=== PATIENT | male | born 1980 | race Caucasian/White ===

== ENCOUNTER 2018-05-05 19:17 | Inpatient (IN) | payer SELFPAY ==
[2018-05-05] MEDS ORDERED: Ketorolac Tromethamine 30 MG/ML VIAL ONE (20:55)
[2018-05-05 20:57] LABS: #Basophils 0.1 thou/uL (0.0-0.2); #Eosinphils 0.2 thou/uL (0.0-0.7); #Lymphocytes 1.4 thou/uL (1.20-3.40); #Monocytes 0.8 thou/uL (0.11-0.59); #Neutrophils 2.8 thou/uL (1.40-6.50); %Basophils 1.3 % (0.0-1.0); %Eosinophils 3.2 % (0.0-10.0); %Lymphocytes 26.7 % (21.0-51.0); %Monocytes 14.8 % (0.0-10.0); Hemoglobin 14.9 g/dL (14.0-18.0); Mean Corpuscular HGB CONC 34.3 g/dL (32.0-36.0); Mean Corpuscular Hemoglobin 31.5 pg (27.0-31.0); Mean Corpuscular Volume 91.8 fL (78.0-98.0); Mean Platelet Volume 7.7 fL (7.4-10.4); Platelet Count 180 thou/uL (130-400); RBC Distribution Width 11.7 % (11.5-14.5); Red Blood Cell (RBC) Count 4.72 mill/uL (4.70-6.10); White Blood Cell (WBC) Count 5.1 thou/uL (4.8-10.8)
[2018-05-05 21:24] LABS: ALT (SGPT) 19 U/L (8-55); AST (SGOT) 16 U/L (5-34); Albumin 3.9 g/dL (3.5-5.0); Alkaline Phosphatase 54 U/L (40-150); Anion Gap 12 mmol/L (10-20); BUN (Urea Nitrogen) 12 mg/dL (8.9-20.6); Bilirubin, Total 0.5 mg/dL (0.2-1.2); Calc. Creatinine Clearance 0 mL/min (70-130); Carbon Dioxide 26 mmol/L (22-29); Chloride 103 mmol/L (98-107); Estimated GFR-MDRD Greater than 90; Globulin 3.3 g/dL (2.4-3.5); Glucose 90 mg/dL (70-105); Potassium 3.6 mmol/L (3.5-5.1); Protein, Total 7.2 g/dL (6.0-8.3); Sodium 137 mmol/L (136-145)
[2018-05-05] MEDS ORDERED: Piperacillin/Tazobactam 4.5 GM VIAL ONE (22:25)
--- NOTE | 2018-05-05 22:36 | RAD ---
LEFT LEG TWO VIEWS: 05/05/18 HISTORY: Spider bite. FINDINGS: No fracture. No malalignment. Mild soft tissue swelling. No radiopaque foreign object. IMPRESSION: Mild soft tissue swelling. No other acute abnormality. POS: CHRISTELH
[2018-05-05] MEDS ORDERED: HYDROcodone/Acetaminophen 5/325 mg Tablet ONE (22:48)
[2018-05-05 23:33] VITALS: BMI 37.3
[2018-05-06] MEDS ORDERED: Acetaminophen 325 MG TAB PO PRN ×2 (00:09→00:56)
[2018-05-06] MEDS ORDERED: Ketorolac Tromethamine 30 MG/ML VIAL IVP PRN (00:55)
[2018-05-06] MEDS ORDERED: Ondansetron ODT 4 MG TAB PO PRN (00:56)
[2018-05-06] MEDS ORDERED: Ondansetron HCl/PF 4 MG/2 ML Vial IVP PRN (00:56)
[2018-05-06] MEDS ORDERED: Mag-Al 1200 mg/1200 mg/30 ML UDCUP PO PRN (00:56)
[2018-05-06] MEDS ORDERED: Calcium Carbonate 500 MG ChewTAB PO PRN (00:56)
[2018-05-06] MEDS ORDERED: Senokot 8.6 MG TAB PO PRN (00:56)
[2018-05-06] MEDS ORDERED: Vancomycin HCl 1 GM in Premix Bag 1 BAG IVPB SCH (01:00)
--- NOTE | 2018-05-06 01:07 | HP ---
The patient was seen and examined on 05/05/2018. CHIEF COMPLAINT: Left leg swelling. HISTORY OF PRESENT ILLNESS: Patient is a 37-year-old male who presented to the emergency room with l eft leg swelling that has been progressively worsening over the last 2-3 days. Four days ago, the patient noticed a spider bite in his left leg. He thinks that he saw the spider renetta douglas was brownish in color and small. He is unable to provide further details. Next day, he noticed some swelling along with erythema and warmth around the area that has been progressively worsening. His pain was moderate to severe in intensity. He also had fever, chills, and nausea. His last teta nus shot was within the last 5 years. PAST MEDICAL HISTORY: Reviewed with the patient and none. PAST SURGICAL HISTORY: Umbilical hernia repair. ALLERGIES: No known drug allergies. CURRENT HOME MEDICATIONS: Reviewed with the patient and none. SOCIAL HISTORY: Patient currently lives at home. He smokes on a daily basis. He also smokes cannab is. Denies any other drug use. He drinks socially. FAMILY HISTORY: Positive for heart disease and diabetes. REVIEW OF SYSTEMS: The following complete review of systems was negative, unless otherwise mentioned in the HPI or below: Constitutional: Weight loss or gain, ability to conduct usual activities. Skin: Rash, itching. Eyes: Double vision, pain. ENT/Mouth: Nose bleeding, neck stiffness, pain, tenderness. Cardiovascular: Palpitations, dyspnea on exertion, orthopnea. Respiratory: Shortness of breath, wheezing, cough, hemoptysis, fever or night sweats. Gastrointestinal: Poor appetite, abdominal pain, heartburn, nausea, vomiting, constipation, or diarr hea. Genitourinary: Urgency, frequency, dysuria, nocturia. Musculoskeletal: Pain, swelling. Neurologic/Psychiatric: Anxiety, depression. Allergy/Immunologic: Skin rash, bleeding tendency. PHYSICAL EXAMINATION: VITAL SIGNS: Temperature 98.9, respirations 20, pulse rate of 97, blood pressure of 129/75 with O2 s aturation of 99% on room air. GENERAL: A 37-year-old male in mild distress due to left lower extremity pain. HEENT: Head is atraumatic, normocephalic. Sclerae are anicteric. Moist mucous membrane, no oral le jose enrique. NECK: Supple, no JVD appreciated. No carotid bruit. LUNGS: Clear to auscultation bilaterally. HEART: S1, S2 present. Regular rate and rhythm. No murmurs, rubs, or gallops. ABDOMEN: Soft, nontender, bowel sounds present. EXTREMITIES: No edema in the right lower extremity. There is significant warmth along with tenderne ss and erythema over the posterior leg. Range of motion of the ankle and knees were normal. There w as 1+ swelling in the left leg. SKIN: As discussed above. LYMPH NODES: No palpable lymph nodes in the neck. PERIPHERAL VASCULAR: Radial pulses palpable bilaterally. MUSCULOSKELETAL: No joint swelling or tenderness. LABORATORY DATA AND IMAGING DATA: 1. CBC showed WBC 5.1 with hemoglobin 14.9, hematocrit 43.3 and platelet 180. 2. Chemistries showed sodium 137, potassium 3.6, chloride 103, bicarbonate 26, BUN 12, creatinine 0. 8. 3. Lactic acid 0.7. 4. X-ray of the leg by my review was negative for foreign body or gas. There was mild soft tissue s welling. IMPRESSION AND PLAN: 1. Left leg cellulitis. Please note that patient was started on doxycycline at the [facility] yesterday without much benefit. He has failed outpatient therapy. 2. Tobacco dependence. 3. Cannabis abuse. 4. Obesity with body mass index 37.3. PLAN: The patient will be monitored on the medical floor. Empiric antibiotics will be initiated. W e will monitor vancomycin level. We will consult Infectious Disease in a.m. due to significant eryth live and swelling. Gentle intravenous hydration. Patient was counseled to quit smoking. Plan of care was discussed with the patient in detail. He stated understanding.
[2018-05-06] MEDS ORDERED: VANCOMYCIN IVPB PRN (01:18)
[2018-05-06] MEDS: Sodium Chloride 0.9% 1,000 ML IV SCH ×2 (02:07→20:00)
[2018-05-06] MEDS: Vancomycin HCl 1.75 GM in Sodium Chloride 0.9% 500 ML IVPB SCH ×2 (02:07→10:16)
[2018-05-06 05:05] LABS: BUN (Urea Nitrogen) 10 mg/dL (8.9-20.6); Calc. Creatinine Clearance 194 mL/min (70-130); Calcium 8.6 mg/dL (7.8-10.44); Carbon Dioxide 25 mmol/L (22-29); Chloride 105 mmol/L (98-107); Estimated GFR-MDRD Greater than 90; Glucose 88 mg/dL (70-105); Potassium 3.6 mmol/L (3.5-5.1); Sodium 137 mmol/L (136-145)
[2018-05-06 05:14] LABS: Band 3 % (5-11); Eosinophils 3 % (0-10); Lymphocytes 34 % (21-51); MDiff Complete? YES; Mean Corpuscular HGB CONC 33.6 g/dL (32.0-36.0); Mean Corpuscular Hemoglobin 30.9 pg (27.0-31.0); Mean Corpuscular Volume 92.1 fL (78.0-98.0); Mean Platelet Volume 7.5 fL (7.4-10.4); Monocytes 15 % (0-10); Neutrophil 45 % (42-75); Platelet Count 169 thou/uL (130-400); RBC Distribution Width 11.8 % (11.5-14.5); Red Blood Cell (RBC) Count 4.53 mill/uL (4.70-6.10); White Blood Cell (WBC) Count 5.4 thou/uL (4.8-10.8)
[2018-05-06] MEDS: Piperacillin/Tazobactam 3.375 GM in Sodium Chloride 0.9% 100 ML IVPB SCH ×2 (05:41→11:57)
[2018-05-06] MEDS ORDERED: traMADol HCl 50 MG TAB PO PRN (07:46)
[2018-05-06] MEDS ORDERED: Sodium Chloride 0.65% Nasal 44 ML BOT EA NARE PRN (07:46)
[2018-05-06] MEDS ORDERED: Milk Of Magnesia 30 ML UDCUP PO PRN (07:46)
[2018-05-06] MEDS ORDERED: Artificial Tears 18 DROP/0.9 ML EA EYE PRN (07:46)
[2018-05-06] MEDS ORDERED: Loratadine 10 MG TAB PO PRN (07:46)
[2018-05-06] MEDS ORDERED: Eucerin (Mineral Oil/Petrolatum,White) 30 gm Jar TOP PRN (07:46)
[2018-05-06] MEDS ORDERED: Diabetic Tussin 200 MG/10 ML UDCUP PO PRN (07:46)
[2018-05-06] MEDS ORDERED: Famotidine 20 MG TAB PO PRN (07:46)
[2018-05-06] MEDS ORDERED: Chloraseptic Spray 180 ml Bottle PO PRN (07:46)
[2018-05-06] MEDS ORDERED: hydrALAZINE 20 MG/ML VIAL SLOW IVP PRN (07:46)
[2018-05-06] MEDS ORDERED: Zolpidem Tartrate 5 MG TAB PO PRN (07:46)
[2018-05-06] MEDS ORDERED: Loperamide HCl 2 MG CAP PO PRN (07:46)
[2018-05-06] MEDS: HYDROcodone/Acetaminophen 5/325 mg Tablet PO PRN ×2 (08:40→22:29)
[2018-05-06] MEDS: Docusate 100 MG CAP PO SCH ×2 (08:43→19:58)
--- NOTE | 2018-05-06 12:25 | PDOC.PN ---
- Subjective Encounter Start Date: 05/06/18 Encounter Start Time: 09:00 -: old records requested/rev Patient seen and examined. No new complaints. No overnight events pt reports that his pain is not controlled with current meds - Objective Resuscitation Status: Resuscitation Status FULL:Full Resuscitation MAR Reviewed: Yes Vital Signs & Weight: Vital Signs (12 hours) Temp Pulse Resp BP Pulse Ox 05/06/18 08:00 97.5 F L 67 20 99 05/06/18 07:54 97.5 F L 67 20 118/78 99 05/06/18 04:00 97.5 F L 70 16 107/71 96 Weight Weight 267 lb 6.731 oz Result Diagrams: 05/06/18 04:29 05/06/18 04:29 Phys Exam - Physical Examination Constitutional: NAD HEENT: PERRLA, moist MMs, sclera anicteric Neck: no JVD, supple Respiratory: no wheezing, no rales, no rhonchi Cardiovascular: RRR, no significant murmur, no rub Gastrointestinal: soft, non-tender, no distention, positive bowel sounds Musculoskeletal: no edema, pulses present left leg cellulitis Neurological: non-focal, normal sensation, moves all 4 limbs Lymphatic: no nodes Psychiatric: normal affect, A&O x 3 Skin: no rash, normal turgor Dx/Plan (1) Cellulitis of left leg Code(s): L03.116 - CELLULITIS OF LEFT LOWER LIMB Status: Acute (2) Cannabis abuse Code(s): F12.10 - CANNABIS ABUSE, UNCOMPLICATED Status: Chronic (3) Obesity (BMI 30-39.9) Code(s): E66.9 - OBESITY, UNSPECIFIED Status: Chronic (4) Tobacco dependence Code(s): F17.200 - NICOTINE DEPENDENCE, UNSPECIFIED, UNCOMPLICATED Status: Chronic - Plan cont current plan of care, continue antibiotics * continue vancomycin and zosyn * will add morphin for pain control * medication reviewed as below * symptomatic treatment * follow culture * ID consulted. Review of Systems - Review of Systems Eyes: negative: Pain, Vision Change, Conjunctivae Inflammation, Eyelid Inflammation, Redness, Other ENT: negative: Ear Pain, Ear Discharge, Nose Pain, Nose Discharge, Nose Congestion, Mouth Pain, Mouth Swelling, Throat Pain, Throat Swelling, Other Respiratory: negative: Cough, Dry, Shortness of Breath, Hemoptysis, SOB with Excertion, Pleuritic Pain, Sputum, Wheezing Cardiovascular: negative: chest pain, palpitations, orthopnea, paroxysmal nocturnal dyspnea, edema, light headedness, other Gastrointestinal: negative: Nausea, Vomiting, Abdominal Pain, Diarrhea, Constipation, Melena, Hematochezia, Other Genitourinary: negative: Dysuria, Frequency, Incontinence, Hematuria, Retention , Other Musculoskeletal: Leg Pain. negative: Neck Pain, Shoulder Pain, Arm Pain, Back Pain, Hand Pain, Foot Pain, Other Skin: negative: Rash, Lesions, Shon, Bruising, Other - Medications/Allergies Allergies/Adverse Reactions: Allergies Allergy/AdvReac Type Severity Reaction Status Date / Time No Known Allergies Allergy Verified 02/13/16 09:08 Medications: Current Medications Acetaminophen (Tylenol) 650 mg PO Q4H PRN PRN Reason: Headache/Fever or Pain Last Admin: 05/06/18 02:15 Dose: 650 mg Hydrocodone Bitart/Acetaminophen ([place] 5/325) 1 tab PO Q4H PRN PRN Reason: Moderate Pain (4-6) Last Admin: 05/06/18 08:40 Dose: 1 tab Al Hydroxide/Mg Hydroxide (Maalox) 30 ml PO Q6H PRN PRN Reason: Heartburn or Indigestion Artificial Tears (Tears Naturale) 0 drop EA EYE PRN PRN PRN Reason: Dry Eyes Calcium Carbonate (Tums) 1,000 mg PO Q4H PRN PRN Reason: Heartburn or Indigestion Docusate Sodium (Colace) 100 mg PO BID [facility] Last Admin: 05/06/18 08:43 Dose: Not Given Famotidine (Pepcid) 20 mg PO BIDPRN PRN PRN Reason: Heartburn or Indigestion Guaifenesin (Robitussin Sf) 200 mg PO Q4H PRN PRN Reason: Cough Hydralazine HCl (Apresoline) 10 mg SLOW IVP Q4H PRN PRN Reason: Systolic BP > 180 Sodium Chloride (Normal Saline 0.9%) 1,000 mls @ 50 mls/hr IV .Q20H [facility] Stop: 05/08/18 01:01 Last Admin: 05/06/18 02:07 Dose: 1,000 mls Piperacillin Sod/Tazobactam (Sod 3.375 gm/ Sodium Chloride) 100 mls @ 200 mls/ hr IVPB 0500,1100,1700,2300 [facility] Last Admin: 05/06/18 11:57 Dose: 100 mls Vancomycin HCl 1.75 gm/ Sodium (Chloride) 500 mls @ 250 mls/hr IVPB 0200,1000, 1800 [facility] Last Admin: 05/06/18 10:16 Dose: 500 mls Ketorolac Tromethamine (Toradol) 15 mg IVP Q6H PRN PRN Reason: Pain Stop: 05/07/18 00:56 Last Admin: 05/06/18 02:15 Dose: 15 mg Loperamide HCl (Imodium) 2 mg PO PRN PRN PRN Reason: Diarrhea/Loose Stools Loratadine (Claritin) 10 mg PO DAILYPRN PRN PRN Reason: Sinus Symptoms Magnesium Hydroxide (Milk Of Magnesium) 30 ml PO DAILYPRN PRN PRN Reason: Constipation Mineral Oil/White Petrolatum (Eucerin Cream) 0 gm TOP BIDPRN PRN PRN Reason: Dry Skin Miscellaneous Medication (Pharmacy To Dose) 1 each IVPB PRN PRN PRN Reason: SSSI Morphine Sulfate (Morphine) 4 mg SLOW IVP Q4H PRN PRN Reason: Severe Pain (7-10) Last Admin: 05/06/18 11:57 Dose: 4 mg Ondansetron HCl (Zofran Odt) 4 mg PO Q6H PRN PRN Reason: Nausea/Vomiting Ondansetron HCl (Zofran) 4 mg IVP Q6H PRN PRN Reason: Nausea/Vomiting Phenol (Chloraseptic [place] 180 Ml Bot) 0 ml PO PRN PRN PRN Reason: Sore Throat Senna (Senokot) 2 tab PO HSPRN PRN PRN Reason: Constipation Sodium Chloride ([place] Nasal [place] 0.65%) 0 ml EA NARE QIDPRN PRN PRN Reason: Nasal Congestion Sodium Chloride (Flush - Normal Saline) 10 ml IVF Q12HR [facility] Last Admin: 05/06/18 08:43 Dose: 10 ml Sodium Chloride (Flush - Normal Saline) 10 ml IVF PRN PRN PRN Reason: Saline Flush Tramadol HCl (Ultram) 50 mg PO Q4H PRN PRN Reason: Moderate Pain (4-6) Zolpidem Tartrate (Ambien) 5 mg PO HSPRN PRN PRN Reason: Insomnia
[2018-05-06] MEDS: cefTRIAXone\\ROCEPHIN 1 GM in Sodium Chloride 0.9% 100 ML IVPB SCH (15:45)
[2018-05-06 16:32] LABS: HIV (1/2) Antibody/Antigen Non-Reactive (NonReactive); HIV 1/2 INDEX 0.08 S/CO (<1.00); Hep C IgG Ab Non-Reactive (NonReactive); Hep C Index 0.08 S/CO (0-0.79)
[2018-05-06 17:59] LABS: Anion Gap 11 mmol/L (10-20)
--- NOTE | 2018-05-06 19:24 | CON ---
DATE OF CONSULTATION: 05/06/2018 REASON FOR CONSULTATION: Inflammatory changes, left leg. HISTORY OF PRESENT ILLNESS: A 37-year-old well until about 3-4 days before admission, when he noticed the pain in the left leg and then he saw a spider and he swatted at it, eventually stepped on it and killed it. It measured approximately 0.5 cm. He did not take any photos of the spider. He does not have a specimen. He was seen at the [facility] and was given oral doxycycline, but the pain and skin changes have worsened and he had some chills and nausea, and was therefore admitted for evaluation and management. Initial vital signs showed a normal temperature and blood pressure. The patient was not tachycardic. He had those areas of erythema in a patch-like distribution, 4 or 5 different patches measuring about 2.5 inches , somewhat rectangular in shape, distributed in the lateral aspect of the left leg. Currently, he is feeling a little better, still with tenderness at the site. No headaches, visual symptoms, sore throat, odynophagia, dysphagia. No dyspnea or chest pain. No abdominal pain or diarrhea. No genitourinary symptoms or joint symptoms. No other skin disorder. PAST MEDICAL HISTORY: Otherwise negative. PAST SURGICAL HISTORY: Umbilical hernia, incarcerated, treated in 02/2016. ALLERGIES: None. MEDICATIONS: Had not been taking any medication. Now, he is on Zosyn and vancomycin. SOCIAL HISTORY: Smokes daily. No IV drug use. He works in construction. FAMILY HISTORY: Noncontributory. PHYSICAL EXAMINATION: VITAL SIGNS: Normal. He is afebrile. SKIN: Shows those areas of erythema in lateral aspect of the left leg, somewhat rectangular shaped with a central area of more darker red color. There are 4 similar patches distributed along the lateral aspect of the extremity. They measure anywhere from 2 to 3.5 cm. Remainder aspects of the skin were remarkable for multiple tattoos. No lymphadenopathy. HEENT: Ocular movements conjugate. Oral cavity normal. NECK: Supple. LUNGS: Symmetric clear breath sounds. HEART: S1, S2 regular rate. ABDOMEN: Soft. Not distended or tender. No ascites. No bladder distention. No neurological abnormalities noted. LABORATORY AND X-RAY FINDINGS: White cell count normal with normal differential. Chemistries are normal as well. Tibia/fibula x-ray within normal limits. ASSESSMENT: Inflammatory patches, left leg in lateral aspect with visualization of spider at the time of the symptom development. DISCUSSION: The lesions are consistent with a spider bite. In [place], there are a few spiders that are able to bite. The ones that cause significant tissue inflammatory changes include a brown recluse spider, which is the more likely scenario here. The worst-case scenario, they will lead to necrosis of the skin. Most of the management is conservative, supportive care, and symptomatic medication. Staphylococcal or streptococcal infection appears to be less likely. Borrelia infection with erythema migrans or a similar process from a tick bite is another possibility. We will switch him to doxycycline and Rocephin and discontinue the current antimicrobials. Erythema migrans following Tick bite is less likely as well, but not completely ruled out. SHANTANUD
[2018-05-06] MEDS: Doxycycline 100 MG CAP PO SCH (19:54)
[2018-05-07] MEDS: Doxycycline 100 MG CAP PO SCH ×2 (09:01→21:49)
[2018-05-07] MEDS: Docusate 100 MG CAP PO SCH ×2 (09:01→21:50)
--- NOTE | 2018-05-07 10:20 | PDOC.PN ---
- Subjective Encounter Start Date: 05/07/18 Encounter Start Time: 09:00 Patient seen and examined. No new complaints. No overnight events - Objective Resuscitation Status: Resuscitation Status FULL:Full Resuscitation MAR Reviewed: Yes Vital Signs & Weight: Vital Signs (12 hours) Temp Pulse Resp BP Pulse Ox 05/07/18 08:00 97.8 F 63 18 110/72 100 Weight Weight 267 lb 6.731 oz I&O: 05/06/18 05/07/18 05/08/18 06:59 06:59 06:59 Intake Total 1989 Balance 1989 Result Diagrams: 05/06/18 04:29 05/06/18 04:29 Phys Exam - Physical Examination Constitutional: NAD HEENT: PERRLA, moist MMs, sclera anicteric Neck: no JVD, supple Respiratory: no wheezing, no rales, no rhonchi Cardiovascular: RRR, no significant murmur, no rub Gastrointestinal: soft, non-tender, no distention, positive bowel sounds Musculoskeletal: no edema, pulses present left leg cellultis, erythema rash, tenderness, swelling Neurological: non-focal, normal sensation, moves all 4 limbs Lymphatic: no nodes Psychiatric: normal affect, A&O x 3 Skin: no rash, normal turgor Dx/Plan (1) Cellulitis of left leg Code(s): L03.116 - CELLULITIS OF LEFT LOWER LIMB Status: Acute (2) Cannabis abuse Code(s): F12.10 - CANNABIS ABUSE, UNCOMPLICATED Status: Chronic (3) Obesity (BMI 30-39.9) Code(s): E66.9 - OBESITY, UNSPECIFIED Status: Chronic (4) Tobacco dependence Code(s): F17.200 - NICOTINE DEPENDENCE, UNSPECIFIED, UNCOMPLICATED Status: Chronic - Plan cont current plan of care, continue antibiotics * continue rocephin and doxycycline as per ID * medication reviewed as below * symptomatic treatment * pain controlled with current pain meds as below * culture negative so far. Review of Systems - Review of Systems Constitutional: negative: fever, chills, sweats, weakness, malaise, other Eyes: negative: Pain, Vision Change, Conjunctivae Inflammation, Eyelid Inflammation, Redness, Other ENT: negative: Ear Pain, Ear Discharge, Nose Pain, Nose Discharge, Nose Congestion, Mouth Pain, Mouth Swelling, Throat Pain, Throat Swelling, Other Respiratory: negative: Cough, Dry, Shortness of Breath, Hemoptysis, SOB with Excertion, Pleuritic Pain, Sputum, Wheezing Cardiovascular: negative: chest pain, palpitations, orthopnea, paroxysmal nocturnal dyspnea, edema, light headedness, other Gastrointestinal: negative: Nausea, Vomiting, Abdominal Pain, Diarrhea, Constipation, Melena, Hematochezia, Other Genitourinary: negative: Dysuria, Frequency, Incontinence, Hematuria, Retention , Other Musculoskeletal: Leg Pain. negative: Neck Pain, Shoulder Pain, Arm Pain, Back Pain, Hand Pain, Foot Pain, Other Skin: Rash. negative: Lesions, Shon, Bruising, Other - Medications/Allergies Allergies/Adverse Reactions: Allergies Allergy/AdvReac Type Severity Reaction Status Date / Time No Known Allergies Allergy Verified 02/13/16 09:08 Medications: Current Medications Acetaminophen (Tylenol) 650 mg PO Q4H PRN PRN Reason: Headache/Fever or Pain Last Admin: 05/06/18 02:15 Dose: 650 mg Hydrocodone Bitart/Acetaminophen ([place] 5/325) 1 tab PO Q4H PRN PRN Reason: Moderate Pain (4-6) Last Admin: 05/06/18 22:29 Dose: 1 tab Al Hydroxide/Mg Hydroxide (Maalox) 30 ml PO Q6H PRN PRN Reason: Heartburn or Indigestion Artificial Tears (Tears Naturale) 0 drop EA EYE PRN PRN PRN Reason: Dry Eyes Calcium Carbonate (Tums) 1,000 mg PO Q4H PRN PRN Reason: Heartburn or Indigestion Docusate Sodium (Colace) 100 mg PO BID [facility] Last Admin: 05/07/18 09:01 Dose: Not Given Doxycycline Hyclate (Vibramycin) 100 mg PO BID [facility] Last Admin: 05/07/18 09:01 Dose: 100 mg Famotidine (Pepcid) 20 mg PO BIDPRN PRN PRN Reason: Heartburn or Indigestion Guaifenesin (Robitussin Sf) 200 mg PO Q4H PRN PRN Reason: Cough Hydralazine HCl (Apresoline) 10 mg SLOW IVP Q4H PRN PRN Reason: Systolic BP > 180 Sodium Chloride (Normal Saline 0.9%) 1,000 mls @ 50 mls/hr IV .Q20H [facility] Stop: 05/08/18 01:01 Last Admin: 05/06/18 20:00 Dose: 1,000 mls Ceftriaxone Sodium 1 gm/ (Sodium Chloride) 100 mls @ 200 mls/hr IVPB 1500 [facility] Last Admin: 05/06/18 15:45 Dose: 100 mls Loperamide HCl (Imodium) 2 mg PO PRN PRN PRN Reason: Diarrhea/Loose Stools Loratadine (Claritin) 10 mg PO DAILYPRN PRN PRN Reason: Sinus Symptoms Magnesium Hydroxide (Milk Of Magnesium) 30 ml PO DAILYPRN PRN PRN Reason: Constipation Mineral Oil/White Petrolatum (Eucerin Cream) 0 gm TOP BIDPRN PRN PRN Reason: Dry Skin Morphine Sulfate (Morphine) 4 mg SLOW IVP Q4H PRN PRN Reason: Severe Pain (7-10) Last Admin: 05/07/18 09:00 Dose: 4 mg Ondansetron HCl (Zofran Odt) 4 mg PO Q6H PRN PRN Reason: Nausea/Vomiting Ondansetron HCl (Zofran) 4 mg IVP Q6H PRN PRN Reason: Nausea/Vomiting Phenol (Chloraseptic [place] 180 Ml Bot) 0 ml PO PRN PRN PRN Reason: Sore Throat Senna (Senokot) 2 tab PO HSPRN PRN PRN Reason: Constipation Sodium Chloride ([place] Nasal [place] 0.65%) 0 ml EA NARE QIDPRN PRN PRN Reason: Nasal Congestion Sodium Chloride (Flush - Normal Saline) 10 ml IVF Q12HR [facility] Last Admin: 05/07/18 09:01 Dose: 10 ml Sodium Chloride (Flush - Normal Saline) 10 ml IVF PRN PRN PRN Reason: Saline Flush Tramadol HCl (Ultram) 50 mg PO Q4H PRN PRN Reason: Moderate Pain (4-6) Zolpidem Tartrate (Ambien) 5 mg PO HSPRN PRN PRN Reason: Insomnia
[2018-05-07] MEDS: cefTRIAXone\\ROCEPHIN 1 GM in Sodium Chloride 0.9% 100 ML IVPB SCH (13:47)
[2018-05-07] MEDS: HYDROcodone/Acetaminophen 5/325 mg Tablet PO PRN (17:43)
[2018-05-07] MEDS: Sodium Chloride 0.9% 1,000 ML IV SCH (17:44)
[2018-05-08] MEDS: HYDROcodone/Acetaminophen 5/325 mg Tablet PO PRN ×2 (02:47→11:31)
[2018-05-08 07:28] VITALS: BP 100/65; TEMP 97.5
[2018-05-08] MEDS: Doxycycline 100 MG CAP PO SCH (09:23)
[2018-05-08] MEDS: Docusate 100 MG CAP PO SCH (09:23)
[2018-05-08] MEDS ORDERED: Ibuprofen 200 MG TAB PO PRN (10:32)
[2018-05-08] MEDS: cefTRIAXone\\ROCEPHIN 1 GM in Sodium Chloride 0.9% 100 ML IVPB SCH (11:26)
--- NOTE | 2018-05-10 14:34 | DIS ---
DATE OF DISCHARGE: 05/08/2018 DISCHARGE DISPOSITION: Home. FOLLOWUP: Follow up with primary care physician at [facility] in 1 week. DISCHARGE MEDICATIONS: 1. Doxycycline 100 mg twice a day for 1 week. 2. Keflex 500 mg three times daily for 1 week. The patient was seen and examined on the day of discharge, denies any new complaints, no chest pain, shortness of breath, palpitations. Leg swelling has significantly improved. BRIEF HOSPITAL COURSE: Patient is a 37-year-old male who presented to the emergency room with left l eg swelling that started after a spider bite approximately 4 days ago. Please refer to the history a nd physical for further details. The patient was admitted to the hospital with a diagnosis of left leg cellulitis. He was started on broad spectrum antibiotics. Patient was seen by Dr. Temple, Infectious Disease. His antibiotics was then changed to doxycycline and Rocephin. He has shown good improvement on the above antibiotics. H is antibiotics will be changed to doxycycline with Keflex. I discussed with Dr. Temple on the day of discharge who agrees with the current plan of care. LABORATORY DATA: CRP 4.4. HIV negative. Hepatitis C antibody was negative. FINAL DIAGNOSES: 1. Left leg cellulitis after a spider bite. 2. Tobacco dependence. Patient was counseled. 3. Cannabis abuse. The patient was counseled. 4. Obesity with a BMI at 37.3. 5. Elevated inflammatory markers.
== END 2018-05-08 12:17 | disposition home or self-care (01) | DRG 603 ==
LOC: ERS 19:17 → T4-B 23:02
PROVIDERS: ADMIT Hospitalist; ATTEND Hospitalist
DX: L03.116 Cellulitis of left lower limb (principal); F17.210 Nicotine dependence, cigarettes, uncomplicated; F12.10 Cannabis abuse, uncomplicated; E66.9 Obesity, unspecified; Z68.37 Body mass index [BMI] 37.0-37.9, adult; Y92.9 Unspecified place or not applicable; T63.331A Toxic effect of venom of brown recluse spider, accidental (unintentional), initial encounter; Z82.49 Family history of ischemic heart disease and other diseases of the circulatory system; Z83.3 Family history of diabetes mellitus
CPT/HCPCS: 36415; 80048; 80053; 83605; 85025; 86140; 86803; 87040; 87389; 96365; 96366; 96367; 96375; 99406; A4216; J0696; J1885; J2270; J2543; J3370; J7050

== ENCOUNTER 2023-05-02 23:16 | Inpatient (IN) | payer SELFPAY ==
[2023-05-03] MEDS ORDERED: Boostrix 0.5 ML (Tdap) VIAL (>/=7 yrs of age) ONE (00:04)
[2023-05-03] MEDS ORDERED: Ondansetron PF 4 MG/2 ML Vial ONE ×2 (00:04→15:19)
[2023-05-03] MEDS ORDERED: Ketamine 50 MG/ML (10ML VIAL) ONE ×2 (00:08→14:56)
[2023-05-03] MEDS ORDERED: fentaNYL 50 mcg/mL 1 mL Vial ONE ×2 (00:10→13:40)
[2023-05-03] MEDS ORDERED: Lidocaine 1% w/Epinephrine 1:100K 20 ML VIAL ONE (00:33)
[2023-05-03 00:48] LABS: #Eosinphils 0.2 thou/uL (0.0-0.7); #Monocytes 0.7 thou/uL (0.11-0.59); #Neutrophils 4.9 thou/uL (1.40-6.50); %Basophils 0.6 % (0.0-1.0); %Eosinophils 2.4 % (0.0-10.0); %Lymphocytes 18.4 % (21.0-51.0); %Monocytes 9.7 % (0.0-10.0); %Neutrophils 68.6 % (42.0-75.0); Hematocrit 43.1 % (42.0-52.0); Hemoglobin 14.2 g/dL (14.0-18.0); Mean Corpuscular HGB CONC 32.9 g/dL (32.0-36.0); Mean Corpuscular Hemoglobin 29.5 pg (27.0-31.0); Mean Corpuscular Volume 89.6 fl (78.0-98.0); Mean Platelet Volume 10.7 fL (7.4-10.4); Platelet Count 225 10x3/uL (130-400); RBC Distribution Width 13.2 % (11.5-14.5); Red Blood Cell (RBC) Count 4.81 mill/uL (4.70-6.10); White Blood Cell (WBC) Count 7.1 10x3/uL (4.8-10.8)
[2023-05-03 01:01] LABS: Prothrombin Time 13.8 sec (12.0-14.7)
[2023-05-03 01:02] LABS: PTT 26.1 sec (22.9-36.1)
[2023-05-03] MEDS ORDERED: Lidocaine 2% PF 5 ML VIAL ONE (01:10)
[2023-05-03 01:12] LABS: ALT (SGPT) 55 U/L (8-55); AST (SGOT) 41 U/L (5-34); Albumin 4.2 g/dL (3.5-5.0); Alkaline Phosphatase 60 U/L (40-110); Anion Gap 15 mmol/L (10-20); BUN (Urea Nitrogen) 15 mg/dL (8.9-20.6); Bilirubin, Total 0.3 mg/dL (0.2-1.2); Calc. Creatinine Clearance 0 mL/min (70-130); Carbon Dioxide 19 mmol/L (22-29); Chloride 112 mmol/L (98-107); Estimated GFR 77; Globulin 3.9 g/dL (2.4-3.5); Glucose 129 mg/dL (70-105); Potassium 3.8 mmol/L (3.5-5.1); Protein, Total 8.1 g/dL (6.0-8.3); Sodium 142 mmol/L (136-145)
[2023-05-03 02:52] VITALS: BMI 40.4
[2023-05-03] MEDS ORDERED: Ondansetron PF 4 MG/2 ML Vial IVP PRN (03:00)
[2023-05-03] MEDS ORDERED: Ondansetron ODT 4 MG TAB SL PRN (03:00)
[2023-05-03] MEDS: D5 1/2 NS w/20 mEq KCL 1,000 ML IV SCH ×2 (03:24→17:07)
[2023-05-03] MEDS: Morphine 4 MG/ML VIAL SLOW IVP PRN ×3 (03:24→12:04)
[2023-05-03] MEDS ORDERED: traMADol HCl 50 MG TAB PO PRN (05:56)
[2023-05-03] MEDS ORDERED: Ondansetron ODT 4 MG TAB PO PRN (05:56)
[2023-05-03] MEDS ORDERED: Ipratropium/Albuterol 3 ML NEB NEB PRN (05:56)
[2023-05-03] MEDS ORDERED: Dextrose 5% in Water 1,000 ML IV PRN (05:57)
[2023-05-03] MEDS ORDERED: Dextrose 50% Abboject 50 ML SYRINGE SLOW IVP PRN (05:57)
[2023-05-03] MEDS ORDERED: Glucagon 1 MG/ML KIT IM PRN (05:57)
[2023-05-03] MEDS: Acetaminophen 500 MG TAB PO SCH ×3 (06:11→19:07)
[2023-05-03] MEDS: traMADol HCl 50 MG TAB PO SCH ×3 (06:11→19:08)
[2023-05-03] MEDS: Sodium Chloride 0.9% 1,000 ML IV SCH ×3 (06:11→19:30)
[2023-05-03] MEDS: Cyclobenzaprine 10 MG TAB PO PRN ×2 (06:11→22:42)
[2023-05-03] MEDS: Famotidine 20 MG TAB PO SCH ×2 (07:42→19:31)
[2023-05-03] MEDS ORDERED: CEFAZOLIN 2 GM in Sodium Chloride 0.9% 100 ML IVPB SCH (07:45)
[2023-05-03] MEDS: Dexamethasone 4 mg/ml Vial SLOW IVP SCH ×3 (07:49→19:30)
[2023-05-03] MEDS: Senokot S 8.6-50 MG TAB PO SCH ×2 (09:08→19:31)
[2023-05-03] MEDS ORDERED: CEFAZOLIN 2 GM VIAL ONE (12:57)
[2023-05-03] MEDS ORDERED: Sodium Chloride 0.9% 100 ML ONE (12:57)
[2023-05-03] MEDS ORDERED: Dexamethasone 4 mg/ml Vial ONE (14:05)
[2023-05-03] MEDS ORDERED: Midazolam HCl 2 mg/2 ml Vial ONE (14:51)
[2023-05-03] MEDS ORDERED: fentaNYL PF 100 MCG/2 ML SYRINGE ONE (14:53)
[2023-05-03] MEDS ORDERED: Dexmedetomidine 200 MCG/2 ML VIAL ONE (14:56)
[2023-05-03] MEDS ORDERED: HYDROmorphone 0.5 MG/0.5 ML SYRINGE ONE (14:56)
[2023-05-03] MEDS ORDERED: Lidocaine 1% PF 5 ML VIAL ONE (15:19)
[2023-05-03] MEDS ORDERED: Ketorolac Tromethamine 30 MG/ML VIAL ONE (15:19)
[2023-05-03] MEDS ORDERED: PROPOFOL 200 MG/20 ML VIAL ONE (15:19)
[2023-05-03] MEDS ORDERED: Dexamethasone 20 MG/5 ML VIAL ONE (15:19)
[2023-05-03] MEDS ORDERED: HYDROmorphone 2 MG/ML VIAL SLOW IVP PRN (16:37)
[2023-05-03] MEDS ORDERED: Promethazine HCl 25 MG/ML VIAL IM PRN (16:37)
[2023-05-03] MEDS ORDERED: Ondansetron HCl/PF 4 MG/2 ML Vial IVP PRN (16:37)
[2023-05-03] MEDS: Oxazepam 10 MG CAP PO SCH (17:07)
[2023-05-03] MEDS: CEFAZOLIN 2 GM in Sodium Chloride 0.9% 100 ML IVPB SCH (19:30)
[2023-05-03] MEDS: Morphine 2 MG/ML VIAL SLOW IVP PRN ×2 (19:37→22:42)
[2023-05-04] MEDS: traMADol HCl 50 MG TAB PO SCH ×4 (01:00→20:43)
[2023-05-04] MEDS: Acetaminophen 500 MG TAB PO SCH ×4 (01:00→20:44)
[2023-05-04] MEDS: Oxazepam 10 MG CAP PO SCH ×2 (01:06→19:19)
[2023-05-04] MEDS: Dexamethasone 4 mg/ml Vial SLOW IVP SCH (01:07)
[2023-05-04] MEDS: CEFAZOLIN 2 GM in Sodium Chloride 0.9% 100 ML IVPB SCH (04:25)
[2023-05-04] MEDS: Morphine 2 MG/ML VIAL SLOW IVP PRN (04:26)
[2023-05-04 07:34] LABS: #Monocytes 0.6 thou/uL (0.11-0.59); %Basophils 0.1 % (0.0-1.0); %Lymphocytes 7.3 % (21.0-51.0); %Monocytes 5.1 % (0.0-10.0); Hematocrit 40.9 % (42.0-52.0); Hemoglobin 13.2 g/dL (14.0-18.0); Mean Corpuscular HGB CONC 32.3 g/dL (32.0-36.0); Mean Corpuscular Hemoglobin 28.7 pg (27.0-31.0); Mean Corpuscular Volume 88.9 fl (78.0-98.0); Platelet Count 191 10x3/uL (130-400); RBC Distribution Width 13.2 % (11.5-14.5); White Blood Cell (WBC) Count 12.6 10x3/uL (4.8-10.8)
[2023-05-04 07:48] LABS: Anion Gap 13 mmol/L (10-20); BUN (Urea Nitrogen) 14 mg/dL (8.9-20.6); Calc. Creatinine Clearance 261 mL/min (70-130); Calcium 8.4 mg/dL (7.8-10.44); Carbon Dioxide 21 mmol/L (22-29); Chloride 105 mmol/L (98-107); Estimated GFR 115; Glucose 140 mg/dL (70-105); Potassium 4.3 mmol/L (3.5-5.1); Sodium 135 mmol/L (136-145)
[2023-05-04] MEDS: Famotidine 20 MG TAB PO SCH ×2 (08:25→20:43)
[2023-05-04] MEDS: Senokot S 8.6-50 MG TAB PO SCH ×2 (08:25→20:44)
[2023-05-04] MEDS: Thiamine 100 MG TAB PO SCH (08:25)
[2023-05-04] MEDS: Folic Acid 1 MG TAB PO SCH (08:25)
[2023-05-04] MEDS: Cyclobenzaprine 10 MG TAB PO PRN (10:23)
[2023-05-04] MEDS ORDERED: Ibuprofen 200 MG TAB PO SCH (10:30)
[2023-05-04] MEDS ORDERED: Gabapentin 300 MG CAP PO SCH (10:30)
[2023-05-04] MEDS: Sodium Chloride 0.9% 1,000 ML IV SCH ×2 (13:16→19:24)
[2023-05-04] MEDS: Ibuprofen 200 MG TAB PO SCH ×2 (15:07→20:42)
[2023-05-04] MEDS: Gabapentin 300 MG CAP PO SCH ×2 (15:08→20:44)
[2023-05-05] MEDS: Acetaminophen 500 MG TAB PO SCH ×3 (01:08→11:06)
[2023-05-05] MEDS: Ibuprofen 200 MG TAB PO SCH ×3 (01:09→11:07)
[2023-05-05] MEDS: traMADol HCl 50 MG TAB PO SCH ×3 (01:09→11:06)
[2023-05-05] MEDS: Oxazepam 10 MG CAP PO SCH (01:10)
[2023-05-05] MEDS: Sodium Chloride 0.9% 1,000 ML IV SCH ×2 (01:17→08:56)
[2023-05-05] MEDS: Gabapentin 300 MG CAP PO SCH (06:07)
[2023-05-05] MEDS: Senokot S 8.6-50 MG TAB PO SCH (08:55)
[2023-05-05] MEDS: Thiamine 100 MG TAB PO SCH (08:56)
[2023-05-05] MEDS: Folic Acid 1 MG TAB PO SCH (08:56)
[2023-05-05] MEDS: Famotidine 20 MG TAB PO SCH (08:56)
[2023-05-05] MEDS: Cyclobenzaprine 10 MG TAB PO PRN (09:00)
[2023-05-05 11:29] VITALS: BP 121/77; TEMP 97.4
== END 2023-05-05 13:45 | disposition home or self-care (01) | DRG 493 ==
LOC: ERS 23:16 → SURG B 05-03 02:02
PROVIDERS: ADMIT Student in an Organized Health Care Education/Training Program; ATTEND Student in an Organized Health Care Education/Training Program
PROC: 0QSJ04Z Reposition Right Fibula with Internal Fixation Device, Open Approach (ICD-10-PCS; principal; 2023-05-03)
DX: S82.891A Other fracture of right lower leg, initial encounter for closed fracture (principal); S02.85XA Fracture of orbit, unspecified, initial encounter for closed fracture; F10.129 Alcohol abuse with intoxication, unspecified; S02.2XXA Fracture of nasal bones, initial encounter for closed fracture; S82.831A Other fracture of upper and lower end of right fibula, initial encounter for closed fracture; S00.532A Contusion of oral cavity, initial encounter; I10 Essential (primary) hypertension; I48.91 Unspecified atrial fibrillation; W18.30XA Fall on same level, unspecified, initial encounter; F12.90 Cannabis use, unspecified, uncomplicated; Z79.01 Long term (current) use of anticoagulants
CPT/HCPCS: 12011; 36415; 70450; 70486; 71045; 72125; 80048; 80053; 80307; 85025; 85610; 85730; 90471; 90715; 93005; 96374; 96375; 99152; C1713; J1100; J1170; J1650; J1885; J2001; J2250; J2270; J2272; J2405; J2704; J3010; J3480; J3490; J7050

== ENCOUNTER 2024-02-12 09:44 | Day surgery (SDC) | payer BC ==
[2024-02-10 12:20] VITALS: BMI 41.7
[2024-02-12] MEDS ORDERED: PROPOFOL 40 ML ONE (10:19)
[2024-02-12] MEDS ORDERED: fentaNYL PF 100 MCG/2 ML SYRINGE ONE ×2 (10:19→14:38)
[2024-02-12] MEDS ORDERED: Bupivacaine 0.25% HCL 30 ML VIAL ONE (10:39)
[2024-02-12] MEDS ORDERED: EPINEPHrine 1 MG/ML VIAL ONE (10:39)
[2024-02-12] MEDS ORDERED: Sodium Chloride 0.9% 100 ML ONE (11:45)
[2024-02-12] MEDS ORDERED: CEFAZOLIN 2 GM VIAL ONE (11:45)
[2024-02-12] MEDS ORDERED: Rocuronium Bromide 10 MG/ML (10ML VIAL) ONE (12:06)
[2024-02-12] MEDS ORDERED: Ketamine In 0.9 % NaCl 50 MG/5 ML SYRINGE ONE (12:12)
[2024-02-12] MEDS ORDERED: Lidocaine 1% PF 5 ML VIAL ONE (12:14)
[2024-02-12] MEDS ORDERED: ePHEDrine Sulfate 50 MG/10 ML VIAL ONE (12:17)
[2024-02-12] MEDS ORDERED: Vecuronium 10 MG VIAL ONE (12:33)
[2024-02-12] MEDS ORDERED: Glycopyrrolate 0.2 MG/ML 5 ML SYRINGE ONE (12:38)
[2024-02-12] MEDS ORDERED: Lidocaine 2% 6 ML (Jelly) SYR ONE (13:41)
[2024-02-12] MEDS ORDERED: SUGAMMADEX SODIUM 200 MG/2 ML VIAL ONE (13:42)
[2024-02-12] MEDS ORDERED: Ondansetron PF 4 MG/2 ML Vial ONE (13:44)
[2024-02-12] MEDS ORDERED: Ketorolac Tromethamine 30 MG (1 mL) VIAL ONE (13:44)
[2024-02-12] MEDS ORDERED: PHENYLEPHRINE-NS 100 MCG/ML 10 ML SYRINGE ONE (13:57)
[2024-02-12] MEDS ORDERED: HYDROcodone/Acetaminophen 5/325 mg Tablet ONE (15:54)
== END 2024-02-12 16:07 | disposition home or self-care (01) ==
LOC: SDC 09:44
PROVIDERS: ATTEND Surgery
DX: K40.20 Bilateral inguinal hernia, without obstruction or gangrene, not specified as recurrent (principal); K42.9 Umbilical hernia without obstruction or gangrene; Z98.890 Other specified postprocedural states
CPT/HCPCS: A4314; C1781; J0171; J0665; J1885; J2405; J2704; J3490